=== PATIENT | male | born 1975 | race Caucasian/White ===

== ENCOUNTER 2024-06-06 23:28 | Emergency (ER) | payer OTHER ==
[~2024-06-06] VITALS: Ht 172.7 cm; Wt 100.0 kg
[2024-06-06 23:59] VITALS: O2SAT 98
[2024-06-07 00:49] LABS: BASOPHILS % 0.5 % (0.0-2.0); EOSINOPHILS % 5.5 % (0.0-5.0); HEMATOCRIT. 44.2 % (42.0-52.0); HEMOGLOBIN. 14.8 g/dL (14.0-18.0); LYMPHOCYTES % 43.1 % (20.0-50.0); MEAN CORPUSCULAR HEMOGLOBIN 28.1 pg (28.0-32.0); MEAN CORPUSCULAR HGB CONC 33.6 g/dL (31.0-37.0); MEAN CORPUSCULAR VOLUME 83.6 fL (80.0-94.0); MEAN PLATELET VOLUME 7.7 fl (7.4-10.4); NEUTROPHILS % 42.9 % (40.0-76.0); PLATELET 242 x1000/uL (130-400); RED BLOOD CELL COUNT 5.29 mill/uL (4.7-6.1); RED CELL DISTRIBUTION WIDTH 13.8 % (11.6-14.6); WHITE BLOOD COUNT 5.5 x1000/uL (4.5-11.0)
[2024-06-07 00:56] LABS: CHLORIDE 104 mEq/L (98-107); POTASSIUM 3.5 mEq/L (3.5-5.1); SODIUM 138 mEq/L (136-145)
[2024-06-07 00:57] LABS: CALCIUM 9.4 mg/dL (8.7-10.4); CARBON DIOXIDE 26 mEq/L (21-32)
[2024-06-07 01:02] LABS: CREATININE 1.2 mg/dL (0.6-1.3); GLUCOSE 102 mg/dL (70-105); UREA NITROGEN BLOOD 20 mg/dL (9-23)
[2024-06-07 01:03] LABS: TROPONIN I HIGH SENSITIVITY 12 ng/L (3.0-53)
[2024-06-07] MEDS: ACETAMINOPHEN 325MG TABLET PO ONE (02:37)
[2024-06-07 03:00] LABS: TROPONIN I HIGH SENSITIVITY 12 ng/L (3.0-53)
[2024-06-07 03:37] VITALS: BP 166/100; PULSE 65; RESP 18; TEMP 98.5
== END 2024-06-07 03:48 | disposition home or self-care (01) ==
LOC: ER 23:28
DX: I10 Essential (primary) hypertension (principal)
CPT/HCPCS: 99284; 80048; 85025; 84484; 36415; 71045; Z7610 ×2